=== PATIENT | female | born 1960 | race Caucasian/White ===

== ENCOUNTER 2021-02-17 10:00 | Emergency (ER) | payer MEDICARE, BC ==
[~2021-02-17 10:00] MED LIST: Calcium Chloride 1 GM/10 ML Abboject SYRINGE ONE; EPINEPHrine 1 MG/10 ML Abboject SYRINGE ONE; EPINEPHrine 1 MG/ML AMP ONE; Sodium Bicarb 50 MEQ/50 ML Abboject 8.4% SYRINGE ONE
[2021-02-17 11:13] LABS: INR-International Normal Ratio 1.1; PTT 29.9 sec (22.0-33.0); Prothrombin Time 12.3 sec (9.5-12.1)
[2021-02-17 11:15] LABS: Magnesium 2.7 mg/dL (1.6-2.6)
[2021-02-17] MEDS ORDERED: Vasopressin 20 UNIT, Admixture Fee 1 EACH in Sodium Chloride 0.9% 50 ML IV SCH (11:30)
[2021-02-17] MEDS ORDERED: VANCOMYCIN 2 GRAM/400 ML BAG 2 GM in Premix Bag 1 BAG IVPB SCH (11:45)
[2021-02-17] MEDS ORDERED: Cefepime 2 GM in Sodium Chloride 0.9% 100 ML IVPB SCH (11:45)
[2021-02-17] MEDS ORDERED: Hydrocortisone Sod Succ/PF 100 mg/2 ml Vial IVP SCH (11:45)
[2021-02-17 14:07] LABS: Actual Bicarbonate (HCO3a) 24.9 mEq/L (22-28); Base Excess (BEa) -6.9 mEq/L (-2.0 to +3.0); CO2 Tension 84.4 mmHg (35.0-45.0); Calcium, Ionized (arterial) 1.34 mmol/L (1.12-1.30); Carboxyhemoglobin (COHb) 1.5 gm% (0.0-3.0); Hemoglobin (Hb) 14.3 g/dL (12.0-16.0); O2 Tension (PaO2), arterial 88.1 mmHg (80.0-100.0); Potassium - ABG Lab 4.1 mmol/L (3.70-5.30); Puncture Site LRA; pH, Arterial 7.09 (7.35-7.45)
== END 2021-02-17 11:52 | disposition expired ==
LOC: CSHERS 10:00
DX: I46.9 Cardiac arrest, cause unspecified (principal); J96.91 Respiratory failure, unspecified with hypoxia; I95.9 Hypotension, unspecified; I49.01 Ventricular fibrillation
CPT/HCPCS: 31500; 36556; 36600; 71045; 82805; 83605; 83735; 83880; 85610; 85730; 87040; 92950; 94002; 96365; 96366; 96375; 96376; J0171; J0692; J1720; J3370; J3490